=== PATIENT | female | born 1985 | race Caucasian/White ===

== ENCOUNTER → 2016-03-05 | Outpatient (CLI) | payer OTHER, BC ==
[2016-03-08 01:32] LABS: CHLAMYDIA TRACH RNA*** NOT DETECTED (NOT DETECTED); GC (NEIS GONORRHOEAE)RNA** NOT DETECTED (NOT DETECTED)
== END | disposition home or self-care (01) ==
LOC: C.LABSPEC 16:53
PROVIDERS: ATTEND Obstetrics & Gynecology
DX: N89.8 Other specified noninflammatory disorders of vagina (principal)

== ENCOUNTER → 2016-08-26 | Outpatient (CLI) | payer OTHER, BC ==
[2016-08-26 17:52] LABS: URINE APPEARANCE CLEAR (CLEAR); URINE BILIRUBIN NEG (NEG); URINE COLOR YELLOW; URINE NITRITE NEG (NEG); URINE SPECIFIC GRAVITY 1.024 (1.000-1.030); UROBILINOGEN NEG (NEG)
[2016-08-26 18:00] LABS: MANUAL MICROSCOPIC REQUIRED? NO; REVIEW REQ? NO
== END | disposition home or self-care (01) ==
LOC: C.LABBFT 17:56
PROVIDERS: ATTEND Physician Assistant Medical
DX: R39.9 Unspecified symptoms and signs involving the genitourinary system (principal)

== ENCOUNTER → 2016-12-09 | Outpatient (CLI) | payer OTHER, BC ==
[2016-12-09 12:40] LABS: ESTIMATED AVERAGE GLUCOSE 114 mg/dl; HA1C FLAG Normal (Normal)
[2016-12-09 12:49] LABS: ALT/SGPT 29 U/L (12-78); AST/SGOT 13 U/L (15-37); BLOOD UREA NITROGEN 13 mg/dl (7-18); BUN/CREATININE RATIO 20.9 (10-20); CALCIUM 8.4 mg/dl (8.5-10.1); CARBON DIOXIDE 26 mmol/L (21-32); CHLORIDE 106 mmol/L (98-107); GLUCOSE 101 mg/dl (70-99); POTASSIUM 4.1 mmol/L (3.5-5.1); SODIUM 139 mmol/L (136-145)
[2016-12-09 12:52] LABS: ALB/GLOB RATIO 0.9 (0.9-2); ALKALINE PHOSPHATASE 60 U/L (45-117); CHOLESTEROL 185 mg/dl (0-200); CHOLESTEROL/HDL RATIO 4.3; HDL CHOLESTEROL 43 mg/dl; LDL CHOLESTEROL CALCULATED 115 mg/dl; TRIGLYCERIDES 135 mg/dl (0-150); VERY LOW DENSITY LIPOPROT CALC 27 mg/dl
== END | disposition home or self-care (01) ==
LOC: C.LABBFT 10:01
PROVIDERS: ATTEND Internal Medicine
DX: Z00.00 Encounter for general adult medical examination without abnormal findings (principal); E88.81 Metabolic syndrome and other insulin resistance

== ENCOUNTER → 2017-02-05 | Outpatient (CLI) | payer OTHER, BC ==
[~2017-02-05] MED LIST: CLC100 PO; DOCU100C31 PO; FRRS300 PO; HYDR25TA4 PO; LABE300T3 PO; MTR600X PO; OMEP1POW2; OXYC-57 PO; PRLSR20 PO
== END | disposition home or self-care (01) ==
LOC: C.LABSPEC 10:21
PROVIDERS: ATTEND Physician Assistant Medical
DX: J02.9 Acute pharyngitis, unspecified (principal)

== ENCOUNTER 2017-09-20 20:35 | Inpatient (IN) | payer OTHER, BC ==
[~2017-09-20] VITALS: Ht 165.1 cm; Wt 125.1 kg
[~2017-09-20 20:35] MED LIST changes: -DOCU100C31 PO; -LABE300T3 PO; -PRLSR20 PO
[2017-09-20] MEDS ORDERED: ONDANSETRON INJ 2 MG/ML 2 ML VIAL IV STA (21:02)
[2017-09-20] MEDS ORDERED: MoRPHine SULFATE 10 MG/ML CARP/VIAL IV STA (21:02)
[2017-09-20] MEDS ORDERED: SODIUM CHLORIDE 0.9% 1000ML 1,000 ML IV STA (21:02)
[2017-09-20 21:35] LABS: BASO % 0.1 %; BASO ABS # 0.01 K/uL (0-0.2); EOS % 0.5 %; EOS ABS # 0.04 K/uL (0-0.5); HEMATOCRIT 39.1 % (37-47); HEMOGLOBIN 13.2 g/dL (12.0-16.0); IG# 0.02 K/uL (0.00-0.02); LYMPH % 22.2 %; LYMPH ABS # 1.76 K/uL (1.2-3.4); MEAN CELL VOLUME 84.8 fL (80-100); MEAN CORPUSCULAR HEMOGLOBIN 28.6 pg (25-34); MEAN CORPUSCULAR HGB CONC 33.8 g/dl (32-36); MEAN PLATELET VOLUME 9.9 fL (7.4-10.4); MONO % 6.2 %; MONO ABS # 0.49 K/uL (0.11-0.59); NEUT % 70.7 %; NEUT ABS # 5.61 K/uL (1.4-6.5); PLATELET COUNT 321 K/uL (130-400); RED CELL DISTRIBUTION WIDTH CV 12.8 % (11.5-14.5); RED CELL DISTRIBUTION WIDTH SD 39.3 fL (36.4-46.3); WHITE BLOOD COUNT 7.93 K/uL (4.8-10.8)
[2017-09-20 21:55] LABS: ALBUMIN 3.5 gm/dl (3.4-5.0); CALCIUM 9.2 mg/dl (8.5-10.1); CREATININE 0.76 mg/dl (0.60-1.20); POTASSIUM 3.6 mmol/L (3.5-5.1); TOTAL PROTEIN 7.6 gm/dl (6.4-8.2)
--- NOTE | 2017-09-20 22:41 | DIAGNOSTIC IMAGING REPORT ---
ULTRASOUND RIGHT UPPER QUADRANT ABDOMEN CLINICAL HISTORY: Generalized abdominal pain. COMPARISON STUDY: Abdominal ultrasound dated 08/16/2013. TECHNIQUE: Real-time, grayscale, and color flow sonography of the right upper quadrant of the abdomen was performed. Images are reviewed in the transverse and longitudinal planes. FINDINGS: Liver: The liver is enlarged and demonstrates heterogeneously increased echotexture consistent with hepatic steatosis. There is no intrahepatic biliary ductal dilatation. The main portal vein is patent. Gallbladder: Small mobile gallstones are suspected. The gallbladder is otherwise normal in appearance. There is no gallbladder wall thickening or pericholecystic fluid. A sonographic Alvarado's sign is reportedly absent. The common bile duct measures up to 0.8 cm in diameter. Pancreas: Visualized portions of the pancreatic head and body are normal in appearance. The splenic vein is patent. Right kidney: Survey images of the right kidney demonstrate normal size and echotexture. There is no hydronephrosis. Ascites: None. IMPRESSION: 1. Cholelithiasis without sonographic evidence of acute cholecystitis. 2. Hepatomegaly and hepatic steatosis. Electronically signed by: Chriss Chino M.D. 09/20/2017 10:40 PM Dictated Date/Time: 09/20/2017 10:38 PM
[2017-09-20] MEDS ORDERED: PRLSR20 PO (22:45)
[2017-09-20] MEDS ORDERED: LABE300T3 PO (22:45)
[2017-09-20] MEDS ORDERED: DOCU100C31 PO (22:45)
--- NOTE | 2017-09-20 22:47 | DIAGNOSTIC IMAGING REPORT ---
TWO VIEW CHEST CLINICAL HISTORY: Generalized abdominal pain. FINDINGS: PA and lateral chest radiographs are compared to study dated 12/04/2010. The cardiomediastinal silhouette is unremarkable. The lungs and pleural spaces are clear. There is no pneumothorax. The bony thorax appears intact. IMPRESSION: No active disease in the chest. Electronically signed by: Chriss Chino M.D. 09/20/2017 10:46 PM Dictated Date/Time: 09/20/2017 10:45 PM
[2017-09-20] MEDS ORDERED: MoRPHine SULFATE 4 MG/ML 1 ML CARP\\VIAL IV PRN (23:45)
[2017-09-20] MEDS ORDERED: ACETAMINOPHEN IV 100 ML IV PRN (23:45)
--- NOTE | 2017-09-20 23:53 | EMERGENCY ROOM VISIT NOTE ---
ED Visit Note First contact with patient: 20:54 Chief Complaint: I am having a gallbladder attack. History of Present Illness: Ms. Alas is a 31 year-old white female who ambulates into the ED accompanied by male friend complaining of epigastric and quadrant abdominal pain. Historically patient reports patient reports that she is 6 weeks status post section without complications, has a history of acid reflux and cholelithiasis. She is scheduled for a cholecystectomy on September by Dr. Ryder. Patient reports a acute onset of pain that awoke her from sleep at 2 AM, approximately 19 hours ago. She reports since that time her pain has been constant but has waxed and waned in intensity. Her pain started approximately 8 hours after eating dinner. Currently she is unable to describe her discomfort as severe. She rates her discomfort 10/10. Her pain is radiating into the epigastric area and into the left upper quadrant and radiating around the abdomen and into the back. She has not identified any aggravating or alleviating factors related to the pain. She reports she was feeling well at 5:00 this evening, approximately 4 hours ago and was able to eat dinner and after dinner the pain re-escalated and has become severe. She reports her pain is so severe it takes her breath away and she feels mildly short of breath. She reports she has been nauseated but has not vomited. Additionally she reports that she has been feeling hot and chills but no tarah fever. Patient denies skin eruptions, skin color changes, upper respiratory tract symptoms, chest pain, diarrhea, constipation, rectal bleeding, black/tarry stools, urinary symptoms, hematuria, vaginal bleeding, vaginal discharge. Review of Systems: As noted above in history of present illness. All body systems were reviewed and found to be negative as noted above. Past Medical History: As previously noted and hypertension and preeclampsia. Current Medications: Hydrochlorothiazide, Prilosec, labetalol, docusate. Allergies to Medications: Patient denies. Social History: Patient is currently employed; she lives with her and feels safe in her home environment; she denies tobacco use and admits to social alcohol use. Physical Examination: Vital Signs: Date Time Temp Pulse Resp B/P (MAP) Pulse Ox O2 Delivery O2 Flow Rate FiO2 818 20:46 36.5 81 18 135/86 100 Room Air GENERAL: 31-year-old female in mild to moderate distress due to pain, nontoxic- appearing, afebrile and hemodynamically stable. NEUROLOGICAL: Awake, alert and oriented to person, place and time. Answering questions appropriately and following commands. Normal gait. Good hand eye coordination. SKIN: Warm, dry and pink. No soft tissue eruptions or trauma noted. HEENT: Atraumatic and normocephalic. PERRLA. Sclera white and conjunctiva pink. Oral cavity moist and pink. Pharynx is nonerythematous or edematous. Speech normal. No lymphadenopathy. Trachea midline. No jugular venous distention. BACK: No tenderness over the bony spine. No CVA tenderness. THORAX: Lungs sounds are clear to auscultation and equal bilaterally with symmetrical chest wall. No wheezing, rales or rhonchi. No crepitus, tenderness , subcutaneous air or deformities noted. HEART: Regular rate and rhythm. No gallops, rubs or murmurs are appreciated. ABDOMEN: Obese and soft with moderate tenderness in the epigastrium, right and left upper quadrants. Positive bowel sounds in all quadrants. No guarding, rigidity or organomegaly. EXTREMITIES: Moves all extremities well on command and with purpose. All distal neurovascular statuses are intact and equal bilaterally. ED Course: Patient is assessed as noted above. Patient's medication list was reviewed. Laboratory Testing: Test 09/20/17 00:00 09/20/17 21:20 Range/Units Urine Color DK YELLOW Urine Appearance CLEAR CLEAR Urine pH 6.5 4.5-7.5 Urine Specific [place] 1.010 1.000-1.030 Urine Protein NEG NEG Urine Glucose (UA) NEG NEG Urine Ketones NEG NEG Urine Occult Blood NEG NEG Urine Nitrite NEG NEG Urine Bilirubin NEG NEG Urine Urobilinogen NEG NEG Urine Leukocyte Esterase SMALL NEG Urine WBC (Auto) 5-10 0-5 /hpf Urine RBC (Auto) 0-4 0-4 /hpf Urine Hyaline Casts (Auto) 1-5 0-5 /lpf Urine Epithelial Cells (Auto) >30 0-5 /lpf Urine Bacteria (Auto) NEG NEG White Blood Count 7.93 4.8-10.8 K/uL Red Blood Count 4.61 4.2-5.4 M/uL Hemoglobin 13.2 12.0-16.0 g/dL Hematocrit 39.1 37-47 % Mean Corpuscular Volume 84.8 80-100 fL Mean Corpuscular Hemoglobin 28.6 25-34 pg Mean Corpuscular Hemoglobin Concent 33.8 32-36 g/dl Platelet Count 321 130-400 K/uL Mean Platelet Volume 9.9 7.4-10.4 fL Neutrophils (%) (Auto) 70.7 % Lymphocytes (%) (Auto) 22.2 % Monocytes (%) (Auto) 6.2 % Eosinophils (%) (Auto) 0.5 % Basophils (%) (Auto) 0.1 % Neutrophils # (Auto) 5.61 1.4-6.5 K/uL Lymphocytes # (Auto) 1.76 1.2-3.4 K/uL Monocytes # (Auto) 0.49 0.11-0.59 K/uL Eosinophils # (Auto) 0.04 0-0.5 K/uL Basophils # (Auto) 0.01 0-0.2 K/uL RDW Standard Deviation 39.3 36.4-46.3 fL RDW Coefficient of Variation 12.8 11.5-14.5 % Immature Granulocyte % (Auto) 0.3 % Immature Granulocyte # (Auto) 0.02 0.00-0.02 K/uL Sodium Level 137 136-145 mmol/L Potassium Level 3.6 3.5-5.1 mmol/L Chloride Level 103 98-107 mmol/L Carbon Dioxide Level 27 21-32 mmol/L Anion Gap 8.0 3-11 mmol/L Blood Urea Nitrogen 10 7-18 mg/dl Creatinine 0.76 0.60-1.20 mg/dl Est Creatinine Clear Calc Drug Dose 143.9 ml/min Estimated GFR () 122.0 Estimated GFR (Non- 105.3 BUN/Creatinine Ratio 13.1 10-20 Random Glucose 88 70-99 mg/dl Calcium Level 9.2 8.5-10.1 mg/dl Total Bilirubin 1.4 0.2-1 mg/dl Direct Bilirubin 0.9 0-0.2 mg/dl Aspartate Amino Transf (AST/SGOT) 720 15-37 U/L Alanine Aminotransferase (ALT/SGPT) 567 12-78 U/L Alkaline Phosphatase 182 45-117 U/L Total Protein 7.6 6.4-8.2 gm/dl Albumin 3.5 3.4-5.0 gm/dl Lipase 109 73-393 U/L Human Chorionic Gonadotropin, Qual NEG NEG Chest X-Rays: Were read by myself and the radiologist showing no acute infiltrates, effusions or pneumothorax. Normal heart silhouette and bony anatomy. Gallbladder Ultrasound: Was reviewed by myself and read by the radiologist showing enlarged liver that demonstrate heterogeneously increased echotexture consistent with hepatic steatosis, no intrahepatic biliary duct dilatation and main portal vein patent. Gallbladder shows small mobile gallstones and is otherwise normal in appearance. No gallbladder wall thickening or pericholecystic fluid. Common bile duct measures up to 0.8 cm in diameter. Pancreas visualized portions of the pancreatic head and body are normal in appearance and the splenic vein is patent. Right kidney shows normal size and echogenicity without hydronephrosis. Impression cholelithiasis without sonographic evidence of acute cholecystitis, hepatomegaly and hepatic steatosis. Patient was hydrated with normal saline and initially received 6 mg of morphine IV for pain and 4 mg of Zofran IV for nausea. Patient was reassessed multiple times during her stay in the emergency department. On reevaluation patient reports she was feeling well and rated her discomfort 2/10 and reported resolution of nausea. Patient's case was reviewed with Dr. Lanier; he independently assessed the patient we agreed on diagnostic approach, treatment, disposition and plan. Patient's case was consulted with Mr. Jeyson Dunbar PA-C, general surgery for surgical evaluation. He informed me that he was going to admit the patient to the hospital because of her elevated LFTs and her gallbladder disease. It was recommended that the patient be brought into the hospital for further evaluation and care. Patient was educated about today's findings. Clinical Impression: Acute right upper quadrant pain. Elevated LFTs. Decision-Making: Initially my differential diagnosis I considered acute cholecystitis, hepatitis, excessive acetaminophen use, HELLP syndrome and other causes. Disposition and Plan: Patient be brought in the hospital for observation/ admission by general surgery; please see their notes and orders for final disposition and plan.
--- NOTE | 2017-09-20 23:54 | Surgery Consultation ---
Consultation Date of Consultation: Sep 20, 2017. Attending Physician: Reason for Consultation: RUQ pain, Elevated LFTs History of Present Illness Patient is a 31F w/ PMHx of obesity, HTN and GERD who presented to the ED this evening with RUQ abdominal pain wrapping to her back and LUQ since last night. Reports her pain woke her up from sleep and has been constant since. She does note the severity has fluctuated. Reports associated N/V, sweats and chills. She had not check her temperature to see if she had a fever. She denies taking anything to control her pain prior to arrival. Denies hematemesis. Moving her bowels and urinating without issue. She does have a history of cholelithiasis and has surgery scheduled with Dr. Ryder on September 30 to have her gallbladder removed. Reports her previous gallbladder episodes have not been as severe and typically resolve on their own. PSHx significant for emergency C- section approx 6 weeks ago due to irregular heartbeat. She denies any issues since this procedure. No other history of abdominal surgeries. Denies use of blood thinning or anticoagulant medications. She last ate this Evening around 1700 where she had steak, rice and corn on the cob. Denies problems with anesthesia in the past. Vitals stable, afebrile, WBC WNL. T bili 1.4, D bili 0.9 , AST 720, ALT 567, Alk Phos 182. RUQ U/S this evening shows cholelithiasis without evidence of acute cholecystitis. CBD 0.8mm. She was given 6mg of morphine and 4mg of zofran in the ED. At this time she reports her pain is controlled and denies any N/V. Past Medical/Surgical History Medical Problems: (1) Closed head injury Status: Acute (2) Concussion Status: Acute (3) Esophageal Reflux Status: Chronic (4) Hypothyroidism Nos Status: Chronic (5) Obesity, Nos Status: Chronic Family History Diabetes mellitus Hypertension Kidney disease Kidney stones Social History Smoking Status: Never Smoker Drug Use: none Marital Status: in relationship Housing Status: lives with family Occupation Status: employed Allergies Coded Allergies: No Known Allergies (Unverified , 10/06/13) Home Medications Scheduled Docusate Sodium (Docusate Sodium), 1 CAP PO DAILY Hydrochlorothiazide (Hctz), 1 TAB PO DAILY Labetalol Hcl (Labetalol Hcl), 150 MG PO DAILY Omeprazole (Prilosec), 20 MG PO DAILY Current Inpatient Medications Current Inpatient Medications Medications (Trade) Dose Ordered Sig/Reta Route Start Time Stop Time Status Last Admin Dose Admin Cefoxitin Sodium 2000 mg/Dextrose 60 ml @ 100 mls/hr Q6H IV 09/20/17 23:45 09/21/17 23:44 UNV Sodium Chloride 1,000 ml @ 125 mls/hr Q8H IV 09/20/17 23:45 10/20/17 23:44 UNV Acetaminophen 100 ml @ 400 mls/hr Q8H PRN IV 09/20/17 23:45 10/20/17 23:44 UNV Ondansetron HCl (Zofran Inj) 4 mg Q6H PRN IV 09/20/17 23:45 10/20/17 23:44 UNV Morphine Sulfate (MoRPHine SULFATE INJ) 2mg for moderate pain ... Q3HWA PRN IV 09/20/17 23:45 10/04/17 23:44 UNV Review of Systems Constitutional: + chills, + sweats, No fever Respiratory: No shortness of breath Cardiovascular: No chest pain Abdomen: + pain (upper abdominal pain wrapping to back), + nausea, + vomiting, No diarrhea, No constipation Genitourinary - Female: No dysuria, No hematuria Integumentary: No new/changing skin lesions, No color change Physical Exam Date Time Temp Pulse Resp B/P (MAP) Pulse Ox O2 Delivery O2 Flow Rate FiO2 09/20/17 20:46 36.5 81 18 135/86 100 Room Air General Appearance: no apparent distress, + obese (BMI 45.9) Head: normocephalic, atraumatic ENT: hearing grossly normal Respiratory/Chest: no respiratory distress Abdomen/GI: normal bowel sounds, soft, no organomegaly, no pulsatile mass, + tenderness (RUQ and epigastric TTP) Neurologic/Psych: alert, normal mood/affect, oriented x 3 Skin: normal color, warm/dry Laboratory Results Last 24 Hours Test 09/20/17 00:00 09/20/17 21:20 Urine Color DK YELLOW Urine Appearance CLEAR Urine pH 6.5 Urine Specific [place] 1.010 Urine Protein NEG Urine Glucose (UA) NEG Urine Ketones NEG Urine Occult Blood NEG Urine Nitrite NEG Urine Bilirubin NEG Urine Urobilinogen NEG Urine Leukocyte Esterase SMALL Urine WBC (Auto) 5-10 /hpf Urine RBC (Auto) 0-4 /hpf Urine Hyaline Casts (Auto) 1-5 /lpf Urine Epithelial Cells (Auto) >30 /lpf Urine Bacteria (Auto) NEG White Blood Count 7.93 K/uL Red Blood Count 4.61 M/uL Hemoglobin 13.2 g/dL Hematocrit 39.1 % Mean Corpuscular Volume 84.8 fL Mean Corpuscular Hemoglobin 28.6 pg Mean Corpuscular Hemoglobin Concent 33.8 g/dl Platelet Count 321 K/uL Mean Platelet Volume 9.9 fL Neutrophils (%) (Auto) 70.7 % Lymphocytes (%) (Auto) 22.2 % Monocytes (%) (Auto) 6.2 % Eosinophils (%) (Auto) 0.5 % Basophils (%) (Auto) 0.1 % Neutrophils # (Auto) 5.61 K/uL Lymphocytes # (Auto) 1.76 K/uL Monocytes # (Auto) 0.49 K/uL Eosinophils # (Auto) 0.04 K/uL Basophils # (Auto) 0.01 K/uL RDW Standard Deviation 39.3 fL RDW Coefficient of Variation 12.8 % Immature Granulocyte % (Auto) 0.3 % Immature Granulocyte # (Auto) 0.02 K/uL Sodium Level 137 mmol/L Potassium Level 3.6 mmol/L Chloride Level 103 mmol/L Carbon Dioxide Level 27 mmol/L Anion Gap 8.0 mmol/L Blood Urea Nitrogen 10 mg/dl Creatinine 0.76 mg/dl Est Creatinine Clear Calc Drug Dose 143.9 ml/min Estimated GFR () 122.0 Estimated GFR (Non- 105.3 BUN/Creatinine Ratio 13.1 Random Glucose 88 mg/dl Calcium Level 9.2 mg/dl Total Bilirubin 1.4 mg/dl Direct Bilirubin 0.9 mg/dl Aspartate Amino Transf (AST/SGOT) 720 U/L Alanine Aminotransferase (ALT/SGPT) 567 U/L Alkaline Phosphatase 182 U/L Total Protein 7.6 gm/dl Albumin 3.5 gm/dl Lipase 109 U/L Human Chorionic Gonadotropin, Qual NEG Assessment & Plan symptomatic cholelithiasis, elevated LFTs Abdomen soft, non-distended, mild TTP in RUQ and epigastric regions ( medicated). no N/V at this time. afebrile. Vitals stable. Repeat LFTs in AM and reevaluate. Plan for possible laparoscopic cholecystectomy w/ cholangiogram in AM with Dr. Tafoya vs GI consult for MRCP/ERCP based on findings. Admit med/surg, NPO after midnight, IVF, IV Mefoxin 2g Q6H, pain medication prn, anti-emetics prn, SCDs. Findings discussed with Dr. Tafoya. Please contact with questions or concerns.
[2017-09-21 00:25] VITALS: BP 147/90; PULSE 81; TEMP 36.5; Ht 165.1 cm; Wt 125.1 kg
--- NOTE | 2017-09-21 00:45 | EMERGENCY ROOM VISIT NOTE ---
ED Visit Note First contact with patient: 20:54 I have personally evaluated this patient examined her and reviewed the pertinent labs and data. I have discussed the case with Marco Antonio Lopez, the physician medical practice assistant and agree with the plan. Please refer to the PA note. This patient presents with right upper quadrant abdominal pain she seems better when I examine her after she is received IV morphine. She has minimal tenderness. I am concerned however that her liver functions are significantly elevated. Her white count is not elevated. Her gallbladder ultrasound does show gallstones but no acute cholecystitis. We have consulted surgery to see her. She is 6 weeks and did have apparently preeclampsia diagnosed afterwards where she had high blood pressure. She has no high blood pressure here and besides liver functions being elevated, she has nothing to suggest help syndrome and she is also 6 weeks out of delivery. She has no ingestion of Tylenol or toxins known. I do think this is likely related to her gallbladder and she was seen by surgery will be admitted for evaluation.
[2017-09-21] MEDS: CEFOXITIN IV 2,000 MG in DEXTROSE 5% 50ML 50 ML IV SCH ×5 (01:12→23:28)
[2017-09-21] MEDS: SODIUM CHLORIDE 0.9% 1000ML 1,000 ML IV SCH ×3 (01:12→17:52)
[2017-09-21] MEDS: ONDANSETRON INJ 2 MG/ML 2 ML VIAL IV PRN ×2 (06:08→17:51)
[2017-09-21 06:12] LABS: BASO % 0.3 %; BASO ABS # 0.02 K/uL (0-0.2); EOS % 1.4 %; EOS ABS # 0.09 K/uL (0-0.5); HEMATOCRIT 35.8 % (37-47); HEMOGLOBIN 12.1 g/dL (12.0-16.0); IG# 0.02 K/uL (0.00-0.02); LYMPH % 27.6 %; LYMPH ABS # 1.78 K/uL (1.2-3.4); MEAN CELL VOLUME 86.3 fL (80-100); MEAN CORPUSCULAR HEMOGLOBIN 29.2 pg (25-34); MEAN CORPUSCULAR HGB CONC 33.8 g/dl (32-36); MEAN PLATELET VOLUME 9.7 fL (7.4-10.4); MONO % 8.5 %; MONO ABS # 0.55 K/uL (0.11-0.59); NEUT % 61.9 %; PLATELET COUNT 270 K/uL (130-400); RED CELL DISTRIBUTION WIDTH CV 12.9 % (11.5-14.5); WHITE BLOOD COUNT 6.46 K/uL (4.8-10.8)
[2017-09-21 06:53] LABS: ALBUMIN 2.9 gm/dl (3.4-5.0); CREATININE 0.69 mg/dl (0.60-1.20); POTASSIUM 3.6 mmol/L (3.5-5.1); TOTAL PROTEIN 6.4 gm/dl (6.4-8.2)
--- NOTE | 2017-09-21 07:27 | Surgery Progress Note ---
Surgery Progress Note Date of Service Sep 21, 2017. Subjective Post OP Day: HD#1 + pain controlled, + diet (NPO), No complaints, No nausea, No vomiting Objective Vital Signs: Date Time Temp Pulse Resp B/P (MAP) Pulse Ox O2 Delivery O2 Flow Rate FiO2 09/21/17 00:25 36.5 81 16 147/90 Room Air 09/21/17 00:25 Room Air 09/21/17 00:06 76 16 132/78 99 09/20/17 20:46 36.5 81 18 135/86 100 Room Air General Appearance: no apparent distress, + obese Head: normocephalic, atraumatic Respiratory/Chest: no respiratory distress Abdomen: non distended, soft, no organomegaly, no pulsatile mass, + tenderness (mild-moderate RUQ TTP) Laboratory Results: Results Past 24 Hours Test 09/20/17 21:20 09/21/17 05:44 Range/Units White Blood Count 7.93 6.46 4.8-10.8 K/uL Red Blood Count 4.61 4.15 4.2-5.4 M/uL Hemoglobin 13.2 12.1 12.0-16.0 g/dL Hematocrit 39.1 35.8 37-47 % Mean Corpuscular Volume 84.8 86.3 80-100 fL Mean Corpuscular Hemoglobin 28.6 29.2 25-34 pg Mean Corpuscular Hemoglobin Concent 33.8 33.8 32-36 g/dl Platelet Count 321 270 130-400 K/uL Mean Platelet Volume 9.9 9.7 7.4-10.4 fL Neutrophils (%) (Auto) 70.7 61.9 % Lymphocytes (%) (Auto) 22.2 27.6 % Monocytes (%) (Auto) 6.2 8.5 % Eosinophils (%) (Auto) 0.5 1.4 % Basophils (%) (Auto) 0.1 0.3 % Neutrophils # (Auto) 5.61 4.00 1.4-6.5 K/uL Lymphocytes # (Auto) 1.76 1.78 1.2-3.4 K/uL Monocytes # (Auto) 0.49 0.55 0.11-0.59 K/uL Eosinophils # (Auto) 0.04 0.09 0-0.5 K/uL Basophils # (Auto) 0.01 0.02 0-0.2 K/uL RDW Standard Deviation 39.3 41.0 36.4-46.3 fL RDW Coefficient of Variation 12.8 12.9 11.5-14.5 % Immature Granulocyte % (Auto) 0.3 0.3 % Immature Granulocyte # (Auto) 0.02 0.02 0.00-0.02 K/uL Sodium Level 137 138 136-145 mmol/L Potassium Level 3.6 3.6 3.5-5.1 mmol/L Chloride Level 103 105 98-107 mmol/L Carbon Dioxide Level 27 27 21-32 mmol/L Anion Gap 8.0 6.0 3-11 mmol/L Blood Urea Nitrogen 10 10 7-18 mg/dl Creatinine 0.76 0.69 0.60-1.20 mg/dl Est Creatinine Clear Calc Drug Dose 143.9 158.5 ml/min Estimated GFR () 122.0 135.4 Estimated GFR (Non- 105.3 116.8 BUN/Creatinine Ratio 13.1 13.8 10-20 Random Glucose 88 95 70-99 mg/dl Calcium Level 9.2 8.0 8.5-10.1 mg/dl Total Bilirubin 1.4 1.5 0.2-1 mg/dl Direct Bilirubin 0.9 0.8 0-0.2 mg/dl Aspartate Amino Transf (AST/SGOT) 720 648 15-37 U/L Alanine Aminotransferase (ALT/SGPT) 567 641 12-78 U/L Alkaline Phosphatase 182 194 45-117 U/L Total Protein 7.6 6.4 6.4-8.2 gm/dl Albumin 3.5 2.9 3.4-5.0 gm/dl Lipase 109 73-393 U/L Human Chorionic Gonadotropin, Qual NEG NEG Assessment & Plan cholelithiasis, elevated LFTs Patient seen and examined with Dr. Tafoya. LFTs this am show persistent elevation and patient continues to have RUQ TTP. keep NPO for now. Will obtain MRCP and consult GI for possible ERCP. Tentatively plan for lap nasreen and ERCP during hospital stay. - will coordinate with GI pending MRCP results Please contact with questions or concerns.
[2017-09-21 07:42] VITALS: BP 119/83; PULSE 79; TEMP 36.8; O2SAT 96
[2017-09-21] MEDS: MoRPHine SULFATE 2 MG/ML CARP IV PRN ×3 (09:34→19:32)
[2017-09-21 09:45] VITALS: BP 124/85; PULSE 81; TEMP 36.6; O2SAT 99
--- NOTE | 2017-09-21 11:17 | DIAGNOSTIC IMAGING REPORT ---
MRCP CLINICAL HISTORY: elevated lft possible cbd stones TECHNIQUE: Multi axial MRI acquisition COMPARISON STUDY: Ultrasound 09/20/2017 FINDINGS: Several small gallstones within the gallbladder lumen. Common bile duct shows no well-defined filling defect. Several small gallstones are present in the region of the origin of the cystic duct. Mild spasm distal common duct. No dilatation of the pancreatic duct. Horseshoe kidney. Liver spleen and pancreas are unremarkable. Kidneys negative for hydronephrosis. IMPRESSION: 1. Several small gallstones within the gallbladder lumen including 1 possibly 2 very small stones at the origin of the cystic duct.. 2. No well-defined filling defects of the common bile duct. 3. Mild spasm of the distal common duct 4. Horseshoe kidney. 5. Study is otherwise unremarkable. The above report was generated using voice recognition software. It may contain grammatical, syntax or spelling errors. Electronically signed by: Joe Cruz M.D. 09/21/2017 11:16 AM Dictated Date/Time: 09/21/2017 11:12 AM
[2017-09-21 14:53] VITALS: BP 106/76; PULSE 97; TEMP 36.7; O2SAT 97
[2017-09-21 15:50] VITALS: O2SAT 97
[2017-09-21 22:45] VITALS: BP 112/74; PULSE 72; TEMP 36.6; O2SAT 96
[2017-09-22] VITALS (10 sets, daily range): BP systolic 128–147; BP diastolic 83–95; PULSE 64–85; TEMP 36.4–36.9; O2SAT 95–100
[2017-09-22] MEDS: SODIUM CHLORIDE 0.9% 1000ML 1,000 ML IV SCH ×2 (03:04→12:18)
--- NOTE | 2017-09-22 05:37 | History & Physical Bridge Note ---
H&P Re-Evaluation Bridge Note: I have examined the patient, reviewed the History & Physical and in the interval since the performance of the History & Physical I have noted the following changes of clinical significance: No changes noted Mrcp noted and discussed with pt gwen ernst possible open for today. r and c explained to pt
[2017-09-22] MEDS: ONDANSETRON INJ 2 MG/ML 2 ML VIAL IV PRN ×2 (07:12→10:20)
[2017-09-22] MEDS: MoRPHine SULFATE 2 MG/ML CARP IV PRN (07:13)
[2017-09-22] MEDS ORDERED: PROPOFOL IV EMULSION 10 MG/ML 20 ML VIAL ONE (07:32)
[2017-09-22] MEDS ORDERED: ONDANSETRON INJ 2 MG/ML 2 ML VIAL ONE (07:33)
[2017-09-22] MEDS ORDERED: FENTANYL CITRATE INJ 50 MCG/1 ML 2 ML VIAL ONE (07:33)
[2017-09-22] MEDS ORDERED: MIDAZOLAM HCL 1 MG/ML 2ML VIAL ONE (07:33)
[2017-09-22] MEDS ORDERED: LIDOCAINE HCL 2% 2 ML VIAL (20MG/ML) ONE (07:33)
[2017-09-22] MEDS ORDERED: ROCURONIUM BROMIDE 10 MG/ML 5 ML VIAL ONE (07:33)
[2017-09-22] MEDS ORDERED: LIDOCAINE/EPINEPHRINE 1% 20 ML VIAL ONE (08:28)
[2017-09-22] MEDS ORDERED: CONRAY 60% 50 ML VIAL ONE (08:28)
[2017-09-22] MEDS ORDERED: ONDANSETRON INJ 2 MG/ML 2 ML VIAL IV PRN (08:45)
[2017-09-22] MEDS ORDERED: ATROPINE SULFATE 0.1 MG/ML 5ML SYR IV PRN (08:45)
[2017-09-22] MEDS ORDERED: LABETALOL HCL IV 5 MG/ML 20ML IV PRN (08:45)
[2017-09-22] MEDS ORDERED: GLUCAGON FOR INJ 1 MG VIAL ONE (09:19)
--- NOTE | 2017-09-22 09:33 | DIAGNOSTIC IMAGING REPORT ---
CHOLANGIOGRAM O.R. CLINICAL HISTORY: Intraoperative cholangiogram. COMPARISON STUDY: MRCP September 21, 2017. FLUOROSCOPY TIME: 4 seconds. FINDINGS: 2 fluoroscopic images from an intraoperative cholangiogram were submitted for interpretation. No filling defects are identified within the common bile duct to suggest choledocholithiasis. There is contrast within the duodenum. A small amount of extraluminal contrast is noted. IMPRESSION: 1. No evidence for choledocholithiasis. 2. Small amount of extraluminal contrast. Electronically signed by: Michael Gong M.D. 09/22/2017 9:32 AM Dictated Date/Time: 09/22/2017 9:30 AM
--- NOTE | 2017-09-22 09:41 | [facility] Post Operative Brief Note ---
Immediate Operative Summary Operative Date Sep 22, 2017. Pre-Operative Diagnosis Cholelithiasis SYMP Post-Operative Diagnosis Cholelithiasis SYMP Procedure(s) Performed Laparoscopic Cholecystectomy with Operative Cholangiogram Surgeon Dr. Viktor Tafoya Master Dyer Surgeon(s) Lauro Lara PA-C Estimated Blood Loss 5CC Findings See Below SEE POST OP Specimens A: Gallbladder and Contents Anesthesia Type General
--- NOTE | 2017-09-22 10:02 | Anesthesiology Progress Note ---
Anesthesia Post Op Note Date & Time Sep 22, 2017 at 10:01 Vital Signs Pain Intensity: 2.0 Vital Signs Past 12 Hours Date Time Temp Pulse Resp B/P (MAP) Pulse Ox O2 Delivery O2 Flow Rate FiO2 09/22/17 07:40 Room Air 09/22/17 07:10 36.6 77 15 136/89 (105) 98 Room Air 09/22/17 05:48 36.7 76 18 128/94 (105) 97 Room Air 09/21/17 23:20 Room Air 09/21/17 22:45 36.6 72 18 112/74 (87) 96 Room Air Notes Mental Status: alert / awake / arousable, participated in evaluation Pt Amnestic to Procedure: Yes Nausea / Vomiting: adequately controlled Pain: adequately controlled Airway Patency, RR, SpO2: stable & adequate BP & HR: stable & adequate Hydration State: stable & adequate Anesthetic Complications: no major complications apparent
[2017-09-22] MEDS ORDERED: OXYC-57 PO (10:07)
--- NOTE | 2017-09-22 10:10 | Discharge Instructions ---
Discharge Instructions Date of Service Sep 22, 2017. Admission Reason for Admission: Elevated Lfts,Symptomatic Cholelithiasis Discharge Discharge Diagnosis / Problem: Elevated LFTs, Symptomatic Cholelithiasis Discharge Goals Goal(s): Decrease discomfort, Improve function Activity Recommendations Activity Limitations: as noted below Lifting Limitations: no more than 10 pounds Exercise/Sports Limitations: until after follow-up appointment May Resume Sexual Activity: after follow-up appointment Shower/Bathe: tomorrow Driving or Machine Use: resume 3 days after discharge . Instructions / Follow-Up Instructions / Follow-Up You have steri-strips over your incisions. You may shower tomorrow, 09/23/2017, but please do not soak or scrub your incisions. Please follow-up with Dr. Tafoya in the General Surgery Clinic located at [address] [place], [place] [address] [address] in 1-2 weeks. Please call the clinic at [phone] to make this appointment. Please call the clinic at [phone] with any questions or concerns. Current Hospital Diet Patient's current hospital diet: Clear Liquid Diet Discharge Diet Recommended Diet: Regular Diet Procedures Procedures Performed: Laparoscopic Cholecystectomy with Operative Cholangiogram Pending Studies Studies pending at discharge: yes List of pending studies: Pathology report. Medical Emergencies . Who to Call and When: Medical Emergencies: If at any time you feel your situation is an emergency, please call [phone] immediately. . Non-Emergent Contact Non-Emergency issues call your: Primary Care Provider, Surgeon Call Non-Emergent contact if: temperature is above 101.5, your pain is not controlled, wound has increased drainage, wound has increased redness . "Provider Documentation" section prepared by Ania Lara. .
[2017-09-22] MEDS ORDERED: OXYCODONE/ACETAMINOPHEN 5-325 TAB PO PRN ×2 (10:15)
[2017-09-22] MEDS: HYDROmorphone INJ 2 MG/ML SYR/VIAL IV PRN ×8 (10:20→11:15)
[2017-09-22] MEDS ORDERED: PROMETHAZINE HCL INJ 12.5 MG in SODIUM CHLORIDE 0.9% 50ML 50 ML IV PRN (10:30)
--- NOTE | 2017-09-22 10:34 | OPERATIVE REPORT ---
DATE OF OPERATION: 09/22/2017 SURGEON: Mathieu Tafoya MD WELLNESS MANAGER: Ania Lara PA-C. PREOPERATIVE DIAGNOSIS: Symptomatic cholelithiasis, chronic cholecystitis, liver enzymes elevation. POSTOPERATIVE DIAGNOSIS: Chronic cholecystitis. PROCEDURE: Laparoscopic cholecystectomy, intraoperative cholangiogram. SUMMARY: The patient was brought in to the operating room theater. The abdomen was prepped with Betadine solution and properly draped. I made a small incision supraumbilically sufficient enough to place a Veress needle followed by CO2 followed by a 5 mm trocar. Point of entry inspected, no injury identified. Under direct visualization, we placed a 5 mm epigastric and two 5 mm subcostal ports with preemptive local anesthesia of 1% Xylocaine without epinephrine. Of note, the needle to infiltrate the local was not long enough to traverse the abdominal wall. Once the trocar has been appropriately placed, we identified the gallbladder, which was wrapped with omentum and well defined, easily flipped over, but then it was markedly distended. We aspirated the fundus of the gallbladder and held a grasper. Once we insufflated it sufficiently enough, then we were able to elevate it, placing the patient in the reverse Trendelenburg position and rotated into the left. We dissected out the triangle of Calot, which was easily dissectible, we could see it, the cystic duct going into the common bile duct and the gallbladder. We clipped it proximally. A small opening in the cystic duct was made. A #4 ureteral catheter traversing abdominal wall was positioned. Of note, when we cut the cystic duct to insert the catheter, there was a moderate amount of pressure in there indicating that she may have had a little stone or something obstructing the distal common bile duct residual from passing a stone. Cholangiocath was positioned. Serial x-rays were taken, which confirmed common bile duct to be distended. There was free flow into the duodenum. There was no obvious evidence of any distal common bile duct obstruction or stones that I could see. The cholangiocatheter was then removed. The cystic duct was securely clipped twice. The cystic artery was identified, doubly clipped proximally and one distally and divided. The gallbladder was removed in the antegrade fashion using electrocautery. There was a posterior branch of the cystic duct that was similarly clipped. Posterior peritoneum and the gallbladder were left intact. I elevated completely gallbladder from the liver bed. Prior to freeing it, we checked the gallbladder fossa and it appeared free of any significant bleeding. The patient's gallbladder was placed in an Endobag. The first bag did not work well. We re-positioned another bag, and then, the gallbladder was taken out intact through the epigastric port. On opening the gallbladder, there were multiple small stones appreciated. The subhepatic suprahepatic area was then checked for hemostasis, it appeared satisfactory, irrigated. The camera was placed in the right subcostal port to visualize the umbilical opening, there were no adhesions appreciated there. We visualized the individual trocar sites and took them out without any difficulty. The wound was then closed with 4-0 Monocryl. Steri-Strips applied. Procedure was tolerated well by the patient. Estimated blood loss approximately 5 mL. The patient was taken to recovery in good condition. I attest to the content of the Intraoperative Record and any orders documented therein. Any exception s are noted below.
--- NOTE | 2017-09-22 11:25 | Anesthesiology Progress Note ---
Anesthesia Post Op Note Date & Time Sep 22, 2017 at 11:25 Vital Signs Vital Signs Past 12 Hours Date Time Temp Pulse Resp B/P (MAP) Pulse Ox O2 Delivery O2 Flow Rate FiO2 09/22/17 11:15 75 19 131/92 98 Nasal Cannula 2 Oxymask 09/22/17 11:05 62 18 137/96 100 Nasal Cannula 2 Oxymask 09/22/17 10:55 59 16 136/95 100 Nasal Cannula 2 Oxymask 09/22/17 10:45 64 15 145/96 100 Nasal Cannula 2 Oxymask 09/22/17 10:35 62 15 144/90 100 Nasal Cannula 2 Oxymask 09/22/17 10:25 64 20 143/86 100 Oxymask 10 09/22/17 10:15 63 20 149/95 100 Oxymask 10 09/22/17 10:06 36.6 69 19 150/92 100 Oxymask 10 09/22/17 07:40 Room Air 09/22/17 07:10 36.6 77 15 136/89 (105) 98 Room Air 09/22/17 05:48 36.7 76 18 128/94 (105) 97 Room Air Notes Mental Status: alert / awake / arousable, participated in evaluation Pt Amnestic to Procedure: Yes Nausea / Vomiting: adequately controlled Pain: adequately controlled Airway Patency, RR, SpO2: stable & adequate BP & HR: stable & adequate Hydration State: stable & adequate Anesthetic Complications: no major complications apparent
[2017-09-23] MEDS ORDERED: HYDROCHLOROTHIAZIDE 25 MG TAB PO SCH (09:00)
[2017-09-23] MEDS ORDERED: PANTOprazole SOD 40 MG TAB PO SCH (09:00)
[2017-09-23] MEDS ORDERED: LABETALOL HCL 300 MG TAB PO SCH (09:00)
--- NOTE | 2017-09-24 13:08 | OPERATIVE REPORT ---
DATE OF OPERATION: 09/22/2017 PREOPERATIVE DIAGNOSES: Chronic cholecystitis, cholelithiasis. POSTOPERATIVE DIAGNOSIS: Same. PROCEDURE: Laparoscopic cholecystectomy, cholangiogram. SUMMARY: Madhavi was taken to surgery for a laparoscopic cholecystectomy, intraoperative cholangiogram. We needed the assistance of Ania Lara, the physician staff physical therapy assistant to help with the prep and then retraction of the gallbladder in this patient. She was there throughout the whole procedure. I attest to the content of the Intraoperative Record and any orders documented therein. Any exception s are noted below.
== END 2017-09-22 15:25 | disposition home or self-care (01) | DRG 418 ==
LOC: C.EDB 20:37 → EEVIPCON 23:36 → C.MSN 23:36 → ENRESERV 23:46 → UNDODEPER 09-21 01:53
PROVIDERS: ADMIT Surgery; ATTEND Surgery
PROC: BF13YZZ Fluoroscopy of Gallbladder and Bile Ducts using Other Contrast (ICD-10-PCS; principal; 2017-09-22 06:30)
PROC: 0FT44ZZ Resection of Gallbladder, Percutaneous Endoscopic Approach (ICD-10-PCS; principal; 2017-09-22 06:30)
DX: K80.10 Calculus of gallbladder with chronic cholecystitis without obstruction (principal); Z68.42 Body mass index [BMI] 45.0-49.9, adult; R79.89 Other specified abnormal findings of blood chemistry; I10 Essential (primary) hypertension; K21.9 Gastro-esophageal reflux disease without esophagitis; E66.9 Obesity, unspecified; Z79.899 Other long term (current) drug therapy